=== PATIENT | male | born 1985 | race Caucasian/White ===

== ENCOUNTER 2018-01-11 03:57 | Outpatient (CLI) | payer MEDICARE, MEDICAID ==
[~2018-01-11 03:57] MED LIST: CIPR-173 PO; INSU100V36 SQ; LANTUS SQ; MECL12.5 PO
== END 2018-01-11 23:59 | disposition home or self-care (01) ==
LOC: DIABETIC 03:57
PROVIDERS: ATTEND Specialist
DX: E10.65 Type 1 diabetes mellitus with hyperglycemia (principal); J45.909 Unspecified asthma, uncomplicated
CPT/HCPCS: G0108

== ENCOUNTER 2018-03-10 11:53 | Emergency (ER) | payer MEDICARE, MEDICAID ==
[~2018-03-10] VITALS: Ht 170.2 cm; Wt 50.3 kg
[2018-03-10 12:31] LABS: BASOPHILS % (AUTO) 0.2 % (0-1); EOSINOPHILS # (AUTO) 0.1 X10'3 (0-0.9); EOSINOPHILS % (AUTO) 1.1 % (0-6); HEMATOCRIT 45.4 % (42.0-52.0); HEMOGLOBIN 15.3 g/dl (14.0-17.9); LYMPHOCYTES # (AUTO) 0.7 X10'3 (1.1-4.8); LYMPHOCYTES % (AUTO) 11.8 % (21-51); MEAN CORPUSCULAR HGB CONC 33.7 % (33.0-36.5); MEAN CORPUSCULAR VOLUME 88.8 FL (78-98); MONOCYTES # (AUTO) 0.9 X10'3 (0-0.9); MONOCYTES % (AUTO) 14.4 % (2-12); NEUTROPHILS # (AUTO) 4.5 X10'3 (1.8-7.7); NEUTROPHILS % (AUTO) 72.5 % (42-75); PLATELET COUNT 216 X10'3 (140-440); RED BLOOD COUNT 5.11 X10'6 (4.70-6.10); RED CELL DISTRIBUTION WIDTH 13.6 % (11.5-14.5); WHITE BLOOD COUNT 6.2 X10'3 (4.5-11.0)
[2018-03-10 12:41] LABS: INR 1.1 INR
[2018-03-10 12:56] LABS: ALANINE AMINOTRANSFERASE 25 U/L (12-78); ALBUMIN 4.1 G/DL (3.4-5.0); ALBUMIN/GLOBULIN RATIO 1.1 (1.1-1.5); ALKALINE PHOSPHATASE 62 IU/L (46-116); ANION GAP 9 (8-16); ASPARTATE AMINO TRANSFERASE 16 U/L (10-37); BILIRUBIN,TOTAL 0.9 MG/DL (0.1-1.0); BLOOD UREA NITROGEN 18 MG/DL (7-18); BUN/CREATININE RATIO 12.9 (5.4-32.0); CALCIUM 9.1 MG/DL (8.5-10.1); CHLORIDE 101 MMOL/L (99-107); CREATININE 1.39 MG/DL (0.60-1.10); GLUCOSE 237 MG/DL (70-104); SODIUM 142 MMOL/L (135-145); eGFR 60 ML/MIN
[2018-03-10] MEDS ORDERED: morphine 4 MG/ML inj SYRINge IV ONE (13:25)
[2018-03-10] MEDS ORDERED: normal saline 1000ML IV soln IVB ONE ×2 (13:25→13:30)
[2018-03-10] MEDS ORDERED: ondansetron/PF 4mg/2ml inj IV ONE (13:25)
[2018-03-10] MEDS ORDERED: acetaminophen 325mg tablet PO STA (13:28)
[2018-03-10 14:36] LABS: PARTIAL THROMBOPLASTIN TIME 29 SECONDS (22-32)
[2018-03-10 14:57] LABS: MAGNESIUM 1.7 MG/DL (1.5-2.4)
[2018-03-10 15:43] LABS: CLARITY,URINE Clear (Clear); GLUCOSE, URINE 500 mg/dl (Neg); KETONES,URINE 15 mg/dl (Neg); LEUKOCYTE ESTERASE ,URINE Trace (Neg); NITRITES, URINE Negative (Neg); OCCULT BLOOD,URINE Small (Neg); PH,URINE 5.5 (4.8-8.0); PROTEIN,URINE Negative (Neg); UROBILINOGEN,URINE 0.2 E.U/dL (0.2-1.0)
[2018-03-10 15:46] LABS: COLOR,URINE STRAW (Yellow); UA COLLECTION TYPE STRAIGHT CATH
[2018-03-10 15:49] LABS: BACTERIA,URINE FEW /HPF (Neg); MUCUS STRANDS FEW /LPF (Neg); RBC,URINE 0-2 /HPF (0-2); SQUAMOUS EPITHELIAL CELL,UR FEW /LPF (FEW); WBC,URINE 0-4 /HPF (0-4)
[2018-03-10 16:35] VITALS: BP 115/71
== END 2018-03-10 16:41 | disposition home or self-care (01) ==
LOC: ER 11:53
DX: E10.65 Type 1 diabetes mellitus with hyperglycemia (principal); R10.10 Upper abdominal pain, unspecified; R50.9 Fever, unspecified; R11.2 Nausea with vomiting, unspecified; J45.909 Unspecified asthma, uncomplicated; Z56.0 Unemployment, unspecified; Z79.4 Long term (current) use of insulin; Z79.899 Other long term (current) drug therapy
CPT/HCPCS: 36415; 71045; 80053; 81001; 83605; 83735; 84145; 85025; 85610; 85730; 87040; 87077; 87088; 93005; 96361; 96374; 96375; 99285; A4310; A4344; J2270; J2405; J7030